=== PATIENT | male | born 1945 | race Caucasian/White ===

== ENCOUNTER → 2019-06-06 10:32 | Outpatient (CLI) | payer MEDICARE, SELFPAY ==
--- NOTE | 2019-06-06 10:43 | XR_ITS ---
The PROCEDURE: XR CALCANEUS LT MIN 2V CLINICAL INDICATION: LT HEEL PAIN Posttraumatic pain COMPARISON: No exams were available for comparison FINDINGS: No fracture or dislocation. No lytic or blastic change. There is normal mineralization. The joint spaces are well-preserved. No significant degenerative/arthritic changes. No erosive changes evident. Other findings:There is a small calcaneal spur as well as an enthesophyte at the Achilles insertion. IMPRESSION: No acute fracture apparent. CT or MRI may be of further value for continuing pain if clinically warranted Dictated by: Christiano Carrington MD 06/06/2019 11:20 Electronically signed by Christiano Carrington MD in [place] 06/06/2019 11:20
== END ==
PROVIDERS: PCP Internal Medicine; Visit Provider Internal Medicine
DX: M79.672 Pain in left foot (principal)
CPT/HCPCS: 73650

== ENCOUNTER 2019-10-18 15:30 | Outpatient (RCR) | payer MEDICARE, MEDICAID, SELFPAY ==
--- NOTE | 2019-09-16 15:07 | HMH.PTOPEV ---
PT Outpatient Evaluation Rehab PT Outpatient Evaluation Start: 09/16/19 14:14 Freq: Status: Active Protocol: Document 09/16/19 14:51 PHORLEONORA (Rec: 09/16/19 15:07 PHORNE [id number]) Electronically Signed By Shaji Apodaca, PT 09/16/19 14:51 Outpatient Therapy Subjective History Subjective History Pt is 74 yowm who presents with L heel pain x 3-4 mos with insidious onset of symptoms. He had X-ray performed which shows calcaneal heel spur in the area of pain. He also reports numbness throughout the L heel since his pain began. He has a hx of Lumbar spinepain with surgery at L4-5 and they moved my sciatic nerve on the left side. He reports pain is worse with walking and standing and the anti- inflammatory injections have not helped much at all. He reports he was given a night splint and instructed to wear it for 1 hr before bed and has been using a frozen water bottle to roll his foot on with little inmprovement. PMH: HTN, HL, Migraine, and kidney stones. Chief Complaint Pain Symptom Type Ache,Sharp Symptoms Relieved By Rest/Positioning Symptoms Aggravated By Standing,Walking Prior Functional Limitations None Current Functional Limitations Standing,Walking Symptom Description Constant but Variable Level of pain today (0-10) 8 Pain scale - at its worst (0-10) 10 Ankle/Foot Eval Gait Observation General Gait Pattern Observation Antalgic Gait,Decrease Weight Bear (L) Palpation Tenderness left Ankle/Foot Palpation Findings Tenderness Ankle/Foot Palpation Overall Comment min-mod on left heel at medial calacaneus ROM Ankle/Foot Dorsiflexion w/Knee Extended 0-8 Active Range Motion (degrees) Ankle/Foot Plantar Flexion Active Range 0-40 of Motion (degrees) Ankle/Foot Eversion Active Range of 0-28 Motion (degrees) Ankle/Foot Eversion Passive Range of 0-40 Motion (degrees) MMT Ankle Dorsiflexion Strength Grade 5 Normal Ankle Plantarflexion Strength Grade 5 Normal Foot Eversion Strength Grade 5 Normal
== END 2019-10-18 15:35 | disposition home or self-care (01) ==
LOC: PT 15:30
PROVIDERS: PCP Internal Medicine; Visit Provider Podiatrist
DX: M72.2 Plantar fascial fibromatosis (principal)
CPT/HCPCS: 97010; 97014; 97033; 97035; 97110; 97140; 97163; 97760; G0283

== ENCOUNTER → 2020-01-10 16:08 | Outpatient (CLI) | payer MEDICARE, MEDICAID, SELFPAY ==
--- NOTE | 2020-01-10 16:18 | XR_ITS ---
PROCEDURE: XR FOOT LT MIN 3V CLINICAL INDICATION: L DORSAL FOOT PAIN COMPARISON: No exams were available for comparison FINDINGS: No fracture or dislocation. No lytic or blastic change. There is normal mineralization. There are minimal osteoarthritic changes of the 1st MTP joint as well as the navicular cuneiform joint. There is a small calcaneal spur and a small enthesophyte at the Achilles insertion. Other findings:None. IMPRESSION: Degenerative changes, no acute finding Dictated by: Christiano Carrington MD 01/10/2020 18:22 Electronically signed by Christiano Carrington MD in [place] 01/10/2020 18:22
== END ==
PROVIDERS: PCP Internal Medicine; Visit Provider Internal Medicine
DX: M79.672 Pain in left foot (principal)
CPT/HCPCS: 73630

== ENCOUNTER → 2020-09-26 14:42 | Outpatient (CLI) | payer MEDICARE, MEDICAID, SELFPAY ==
--- NOTE | 2020-09-26 14:49 | XR_ITS ---
PROCEDURE: XR SHOULDER RT MIN 2V CLINICAL INDICATION: RT SHOULDER PAIN COMPARISON: No exams were available for comparison FINDINGS: No fracture or dislocation. No lytic or blastic change. There is normal mineralization. Osteoarthritic changes are present at the acromioclavicular joint and glenohumeral joint. There is a high-riding humeral head with subacromial stenosis which is moderate to severe suggesting rotator cuff tear. MRI may confirm. Other findings:None. 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 Dictated by: Christiano Carrington MD 09/26/2020 15:17 Christiano Carrington MD in [place] 09/26/2020 15:17
== END ==
PROVIDERS: PCP Internal Medicine; Visit Provider Internal Medicine
DX: M25.511 Pain in right shoulder (principal)
CPT/HCPCS: 73030

== ENCOUNTER → 2020-12-03 15:23 | Outpatient (CLI) | payer MEDICARE, MEDICAID, SELFPAY ==
--- NOTE | 2020-12-03 | XR_ITS ---
PROCEDURE: XR TIBIA FIBULA LT 2V CLINICAL INDICATION: LT LEG AND ANKLE PAIN Pain and swelling COMPARISON: No exams were available for comparison FINDINGS: No fracture or dislocation. No lytic or blastic change. There is normal mineralization. The joint spaces are well-preserved. No significant degenerative/arthritic changes. No erosive changes evident. Other findings:None. IMPRESSION: No acute findings. Dictated by: Christiano Carrington MD 12/03/2020 15:50 Christiano Carringotn MD in [place] 12/03/2020 15:50
--- NOTE | 2020-12-03 | XR_ITS ---
PROCEDURE: XR ANKLE LT MIN 3V CLINICAL INDICATION: LT LEG AND ANKLE PAIN Pain and swelling COMPARISON: No exams were available for comparison FINDINGS: There is an ununited ossification center versus an old fracture at the tip of the medial malleolus. No acute fracture or dislocation is evident. There is minimal spurring at the distal tibia anteriorly and posteriorly. There is a small calcaneal spur. IMPRESSION: Chronic changes, no acute finding Dictated by: Christiano Carrington MD 12/03/2020 15:51 Christiano Carrington MD in [place] 12/03/2020 15:51
== END ==
PROVIDERS: PCP Internal Medicine; Visit Provider Internal Medicine
DX: M25.572 Pain in left ankle and joints of left foot (principal)
CPT/HCPCS: 73590; 73610

== ENCOUNTER → 2020-12-11 12:44 | Outpatient (CLI) | payer MEDICARE, MEDICAID, SELFPAY ==
--- NOTE | 2020-12-11 12:50 | MR_ITS ---
PROCEDURE: MR SHOULDER RT WO CON CLINICAL INDICATION: RT SHOULDER PAIN COMPARISON: No exams were available for comparison TECHNIQUE: Routine multiplanar multi echo sequences are performed without gadolinium enhancement. FINDINGS: There is a full-thickness full width tear of the supraspinatus with tendon retraction measuring approximately 3.5 centimeters. There is moderate to severe supraspinatus muscle atrophy. There is an undersurface tear of the infraspinatus with intrasubstance extension. Mild atrophy of the infraspinatus is noted. There is fraying with partial thickness tear of the superior fibers of supraspinatus. The teres minor is intact. The biceps tendon is intact free air. Fluid is noted within the bicipital groove. Fluid is noted in the subacromial/subdeltoid bursa. Non arthrographic images of the labrum demonstrate no evidence of tears. Minor subchondral cystic changes are noted. Moderate acromioclavicular joint osteoarthritis. Bone marrow signal intensity is within normal limits without evidence of marrow infiltrative process. The coracoclavicular, coracoacromial and coracohumeral ligaments are intact. No other soft tissue abnormality is noted. IMPRESSION: Full-thickness foot with tear of the supraspinatus with tendon retraction measuring approximately 3.5 centimeters. Moderate to severe supraspinatus muscle atrophy. Undersurface tear of the infraspinatus with the intrasubstance extension. Mild atrophy of the infraspinatus. Subacromial/subdeltoid bursitis. Acromioclavicular joint osteoarthritis. Dictated by: Henrietta Giraldo 12/11/2020 14:43 Henrietta Giraldo in [place] 12/11/2020 14:43
== END ==
PROVIDERS: PCP Internal Medicine; Visit Provider Internal Medicine
DX: M75.101 Unspecified rotator cuff tear or rupture of right shoulder, not specified as traumatic (principal)
CPT/HCPCS: 73221

== ENCOUNTER 2020-12-23 12:54 | Emergency (ER) | payer MEDICARE, MEDICAID, SELFPAY ==
[2020-12-23 12:54] VITALS: BP 145/93; PULSE 81; RESP 22; TEMP 36.6; O2SAT 98; BMI 36.8
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
--- NOTE | 2020-12-23 12:56 | XR_ITS ---
PROCEDURE: XR CHEST 2V CLINICAL HISTORY: sob Shortness of breath, smoker COMPARISON: CR CXR CHEST(2 VIEWS-NOT PORTABLE) from 08/18/2014 CR CXR CHEST(2 VIEWS-NOT PORTABLE) from 12/25/2014 CR CXR CHEST(2 VIEWS-NOT PORTABLE) from 07/31/[address] CHEST W/ CONTRAST from 08/01/2016 FINDINGS: The cardiomediastinal silhouette and pulmonary vascularity are within normal limits. Increased density is present along the anterior aspect of T10 and T11 the lateral view with suggestion of a mass or dense consolidation in this region measuring approximately 4 cm. While this could be related to overlying osteophytes and vascular summation density, 1 cannot exclude the possibility a mass or dense consolidation. Chest CT may provide further evaluation. The remaining lungs are clear. COPD changes. No acute bony findings. There is mild chronic wedge compression changes of T12 and T11 IMPRESSION: Possible mass or dense consolidation overlies lower thoracic spine anteriorly versus summation artifact. Chest CT with contrast may provide further evaluation COPD changes Dictated by: Christiano Carrington MD 12/23/2020 13:57 Christiano Carrington MD in [place] 12/23/2020 13:57
[2020-12-23 13:03] VITALS: BP 154/92; PULSE 79; RESP 24; O2SAT 97
[2020-12-23 13:30] VITALS: BP 152/98; PULSE 77; RESP 18; O2SAT 96
[2020-12-23 13:38] LABS: Basophils % 0.2 % (0.1-2.0); Eosinophils # 0.1 K/mm3 (0.0-0.4); Eosinophils % 0.7 % (0.1-12.0); Hematocrit 45.4 % (42.0-52.0); Hemoglobin 15.1 g/dL (14.1-18.0); Lymphocytes # 1.1 K/mm3 (0.7-4.5); Lymphocytes % 9.6 % (10-50); Mean Corpuscular HGB Conc 33.2 g/dL (31.8-35.4); Mean Corpuscular Hemoglobin 30.3 pg (27.0-31.2); Mean Corpuscular Volume 91.1 fl (80-94); Mean Platelet Volume 8.3 fl (7.4-10.4); Monocytes # 0.6 K/mm3 (0.1-1.0); Neutrophils % 84.5 % (37.0-80.0); Platelet Count 176 K/mm3 (142-424); Red Blood Count 4.98 M/mm3 (4.60-6.20); Red Cell Distribution Width 14.5 % (11.5-17.5); White Blood Count 11.9 K/mm3 (4.8-10.8)
[2020-12-23 13:46] LABS: Alanine Aminotransferase 24 U/L (12-78); Albumin Level 4.2 g/dl (3.5-5.0); Albumin/Globulin Ratio 1.4 (1.1-1.8); Alkaline Phosphatase 68 U/L (38-126); Anion Gap 11.4 mEq/L (5-15); Aspartate Amino Transferase 30 U/L (17-59); Bilirubin,Total 0.6 mg/dl (0.2-1.3); Blood Urea Nitrogen 9 mg/dl (9-20); Calcium 9.7 mg/dl (8.4-10.2); Carbon Dioxide 28 mmol/L (22.0-30.0); Chloride 105 mmol/L (98-107); Creatinine Clearance Estimated 99 mL/min (50-200); Estimated Glomerular Filt Rate 83 ml/min (>60); GFR (African American) 100 ML/MIN (>60); Glucose 115 mg/dl (74-100); Potassium 4.4 mmoL/L (3.5-5.1); Sodium 140 mmol/L (136-145); Total Protein,Serum 7.2 g/dl (6.3-8.2)
[2020-12-23 13:59] LABS: Troponin I < 0.01 ng/ml (0.00-0.034)
[2020-12-23 14:00] VITALS: BP 157/100; PULSE 79; RESP 20; O2SAT 98
[2020-12-23 14:16] VITALS: BP 152/100; PULSE 78; RESP 20; TEMP 36.6; O2SAT 98
--- NOTE | 2020-12-24 13:49 | ECG_ITS ---
APPROVED REPORT Exam: Resting ECG HR:74 bpm ECG Measurements Heart Rate 74 AXES VA 204 P 66 QRSd 88 QRS 244 QT 396 T 57 QTc 439 Conclusion Normal sinus rhythm Possible Left atrial enlargement Right superior axis deviation Possible Right ventricular hypertrophy Abnormal ECG Electronically signed by : Ruddy Hubbard, 12/27/2020 14:01:47
== END 2020-12-23 14:18 | disposition home or self-care (01) ==
PROVIDERS: Emergency Provider Family Medicine; PCP Internal Medicine
DX: Z77.098 Contact with and (suspected) exposure to other hazardous, chiefly nonmedicinal, chemicals (principal); R05 Cough; R06.02 Shortness of breath; I10 Essential (primary) hypertension; K21.9 Gastro-esophageal reflux disease without esophagitis; Z88.5 Allergy status to narcotic agent; Z87.442 Personal history of urinary calculi; F17.210 Nicotine dependence, cigarettes, uncomplicated
CPT/HCPCS: 71046; 80053; 84484; 85025; 93005; 99283

== ENCOUNTER → 2020-12-31 11:00 | Outpatient (CLI) | payer MEDICARE, MEDICAID, SELFPAY ==
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
== END ==
PROVIDERS: PCP Internal Medicine; Visit Provider Internal Medicine
DX: R06.02 Shortness of breath (principal)
CPT/HCPCS: 71270; Q9967

== ENCOUNTER → 2021-05-24 17:24 | Outpatient (CLI) | payer MEDICARE, MEDICAID, SELFPAY ==
[2021-05-24 18:31] LABS: Basophils # 0.1 K/mm3 (0-0.2); Eosinophils # 0.1 K/mm3 (0.0-0.4); Eosinophils % 1.3 % (0.1-12.0); Hematocrit 43.2 % (42.0-52.0); Hemoglobin 14.1 g/dL (14.1-18.0); Lymphocytes # 3.1 K/mm3 (0.7-4.5); Lymphocytes % 29.9 % (10-50); Mean Corpuscular HGB Conc 32.6 g/dL (31.8-35.4); Mean Corpuscular Hemoglobin 29.3 pg (27.0-31.2); Mean Corpuscular Volume 89.7 fl (80-94); Mean Platelet Volume 9.9 fl (7.4-10.4); Monocytes # 1.1 K/mm3 (0.1-1.0); Monocytes % 10.3 % (1.7-9.3); Neutrophils # 5.9 K/mm3 (1.8-7.8); Neutrophils % 57.4 % (37.0-80.0); Platelet Count 254 K/mm3 (142-424); Red Blood Count 4.81 M/mm3 (4.60-6.20); Red Cell Distribution Width 14.5 % (11.5-17.5); White Blood Count 10.3 K/mm3 (4.8-10.8)
[2021-05-24 19:03] LABS: Alanine Aminotransferase 17 U/L (12-78); Albumin Level 4.1 g/dl (3.5-5.0); Albumin/Globulin Ratio 1.6 (1.1-1.8); Alkaline Phosphatase 66 U/L (38-126); Anion Gap 12.8 mEq/L (5-15); Aspartate Amino Transferase 22 U/L (17-59); Bilirubin,Total 0.3 mg/dl (0.2-1.3); Blood Urea Nitrogen 8 mg/dl (9-20); Calcium 9.3 mg/dl (8.4-10.2); Carbon Dioxide 30 mmol/L (22.0-30.0); Chloride 103 mmol/L (98-107); Cholesterol 155 mg/dl (140-200); Estimated Glomerular Filt Rate 110 ml/min (>60); GFR (African American) 133 ML/MIN (>60); Globulin 2.6 g/dL (1.3-3.2); Glucose 70 mg/dl (74-100); HDL Cholesterol 51 mg/dl (40-60); Potassium 3.8 mmoL/L (3.5-5.1); Sodium 142 mmol/L (136-145); Total Protein,Serum 6.7 g/dl (6.3-8.2); Triglycerides 131 mg/dl (30-150); Uric Acid 6.1 mg/dl (3.5-8.5); VLDL Cholesterol 26 mg/dL (0-40)
[2021-05-24 19:13] LABS: Direct LDL Cholesterol 78.31 mg/dL (100-129)
== END ==
PROVIDERS: Visit Provider Internal Medicine
DX: I10 Essential (primary) hypertension (principal); E78.5 Hyperlipidemia, unspecified; M10.9 Gout, unspecified; J44.9 Chronic obstructive pulmonary disease, unspecified
CPT/HCPCS: 80053; 80061; 84550; 85025

== ENCOUNTER → 2021-06-12 16:12 | Outpatient (CLI) | payer MEDICARE, MEDICAID, SELFPAY ==
[2021-06-12 16:32] LABS: Coronavirus 19, PCR Not Detected (NotDetected); Influenza A, PCR Not Detected (NotDetected); Influenza B, PCR Not Detected (NotDetected)
== END ==
PROVIDERS: PCP Internal Medicine; Visit Provider Internal Medicine
DX: Z20.822 Contact with and (suspected) exposure to COVID-19 (principal)
CPT/HCPCS: C9803; U0003; U0005

== ENCOUNTER → 2021-08-23 16:24 | Outpatient (CLI) | payer MEDICARE, MEDICAID, SELFPAY ==
[2021-08-23 17:24] LABS: Basophils % 0.2 % (0.1-2.0); Eosinophils # 0.2 K/mm3 (0.0-0.4); Eosinophils % 1.4 % (0.1-12.0); Hematocrit 43.4 % (42.0-52.0); Hemoglobin 14.3 g/dL (14.1-18.0); Lymphocytes # 2.7 K/mm3 (0.7-4.5); Lymphocytes % 18.6 % (10-50); Mean Corpuscular HGB Conc 32.9 g/dL (31.8-35.4); Mean Corpuscular Hemoglobin 29.6 pg (27.0-31.2); Mean Platelet Volume 8.7 fl (7.4-10.4); Monocytes % 7.3 % (1.7-9.3); Neutrophils # 10.3 K/mm3 (1.8-7.8); Neutrophils % 72.5 % (37.0-80.0); Platelet Count 238 K/mm3 (142-424); Red Blood Count 4.82 M/mm3 (4.60-6.20); Red Cell Distribution Width 14.3 % (11.5-17.5); White Blood Count 14.3 K/mm3 (4.8-10.8)
== END ==
PROVIDERS: Visit Provider Internal Medicine
DX: K57.92 Diverticulitis of intestine, part unspecified, without perforation or abscess without bleeding (principal)
CPT/HCPCS: 85025

== ENCOUNTER → 2021-09-10 16:30 | Outpatient (CLI) | payer MEDICARE, MEDICAID, SELFPAY ==
[2021-09-10 17:07] LABS: Strep Scrn Group A (Rapid) Negative (Negative)
== END ==
PROVIDERS: PCP Internal Medicine; Visit Provider Internal Medicine
DX: Z20.822 Contact with and (suspected) exposure to COVID-19 (principal); J02.9 Acute pharyngitis, unspecified
CPT/HCPCS: 87430; C9803; U0003; U0005

== ENCOUNTER → 2021-10-29 10:33 | Outpatient (CLI) | payer MEDICARE, MEDICAID, SELFPAY ==
--- NOTE | 2021-10-29 10:43 | CT_ITS ---
FINAL REPORT CLINICAL HISTORY: LLQ PAIN, HX DIVERTICULITIS PRIOR 04-17-16 COMPARISON: April 17, 2016 FINDINGS: Axial CT images of the abdomen and pelvis were obtained without intravenous contrast. Coronal reformatted images were also obtained.This study was performed with techniques to keep radiation doses as low as reasonably achievable (ALARA). Individualized dose reduction techniques using automated exposure control or adjustment of mA and/or kV according to the patient's size were employed. Abdomen: There is mild scarring in the lung bases. There is no evidence of renal stone or hydronephrosis. The gallbladder is unremarkable. There is mild fatty infiltration of the liver. The spleen and pancreas have an unremarkable, unenhanced appearance. No mass or adenopathy is seen. No inflammatory process is identified. There is a small umbilical hernia containing fat. Pelvis: The appendix is normal. There is no evidence of ureteral dilation or ureteral stone. There is descending and sigmoid diverticulosis without evidence of diverticulitis. The prostate is enlarged. Bilateral L5 pars defects are noted. IMPRESSION: No renal or ureteral stone, or hydronephrosis. Descending and sigmoid diverticulosis without evidence of diverticulitis. No acute inflammatory process. Reviewed, Interpreted and Dictated by Luis Bey III, MD Transcribed by Mireya Pisano Authenticated by Luis Bey III, MD on 10/29/2021 11:54:19 AM [facility]
== END ==
PROVIDERS: PCP Internal Medicine; Visit Provider Internal Medicine
DX: R10.32 Left lower quadrant pain (principal)
CPT/HCPCS: 74176

== ENCOUNTER → 2021-11-06 10:46 | Outpatient (CLI) | payer MEDICARE, MEDICAID, SELFPAY ==
--- NOTE | 2021-11-06 10:49 | US_ITS ---
FINAL REPORT CLINICAL HISTORY: CLAUDICATION,REST PAIN,HLD,HTN,SMOKER,SKIN COLOR CHANGES FINDINGS: Ankle brachial indices was obtained. The MEHDI on the right is 1.1 which is normal. The MEHDI on the left is 0.9 which is mildly depressed consistent with mild arterial occlusive disease. 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 Reviewed, Interpreted and Dictated by Micheal Welch MD Transcribed by Mana Campos Authenticated by Micheal Welch MD on 11/06/2021 01:46:45 PM [facility]
== END ==
PROVIDERS: PCP Internal Medicine; Visit Provider Internal Medicine
DX: I73.9 Peripheral vascular disease, unspecified (principal)
CPT/HCPCS: 93923

== ENCOUNTER → 2021-11-08 11:48 | Outpatient (CLI) | payer MEDICARE, MEDICAID, SELFPAY ==
[2021-11-08 12:48] LABS: Basophils % 0.3 % (0.1-2.0); Eosinophils % 0.3 % (0.1-12.0); Hematocrit 45.6 % (42.0-52.0); Hemoglobin 14.8 g/dL (14.1-18.0); Lymphocytes % 22.4 % (10-50); Mean Corpuscular HGB Conc 32.4 g/dL (31.8-35.4); Mean Corpuscular Volume 89.3 fl (80-94); Mean Platelet Volume 8.8 fl (7.4-10.4); Monocytes # 0.3 K/mm3 (0.1-1.0); Monocytes % 3.1 % (1.7-9.3); Neutrophils # 6.7 K/mm3 (1.8-7.8); Neutrophils % 73.8 % (37.0-80.0); Platelet Count 257 K/mm3 (142-424); Red Blood Count 5.11 M/mm3 (4.60-6.20); White Blood Count 9.1 K/mm3 (4.8-10.8)
[2021-11-08 13:21] LABS: Chloride 100 mmol/L (98-107); Potassium 3.9 mmoL/L (3.5-5.1); Sodium 136 mmol/L (136-145)
[2021-11-08 13:23] LABS: Alanine Aminotransferase 28 U/L (12-78); Alkaline Phosphatase 71 U/L (38-126); Aspartate Amino Transferase 28 U/L (17-59); Bilirubin,Total 0.5 mg/dl (0.2-1.3); Blood Urea Nitrogen 8 mg/dl (9-20); Estimated Glomerular Filt Rate 94 ml/min (>60); GFR (African American) 114 ML/MIN (>60)
[2021-11-08 13:24] LABS: Albumin Level 4.3 g/dl (3.5-5.0); Albumin/Globulin Ratio 1.7 (1.1-1.8); Anion Gap 9.9 mEq/L (5-15); Calcium 8.7 mg/dl (8.4-10.2); Carbon Dioxide 30 mmol/L (22.0-30.0); Chol/HDL Ratio 2.8 (1-3.5); Cholesterol 163 mg/dl (140-200); Globulin 2.6 g/dL (1.3-3.2); Glucose 130 mg/dl (74-100); HDL Cholesterol 59 mg/dl (40-60); Total Protein,Serum 6.9 g/dl (6.3-8.2); Triglycerides 124 mg/dl (30-150); VLDL Cholesterol 25 mg/dL (0-40)
[2021-11-08 13:26] LABS: Hemoglobin A1C 6.1 % (4.0-6.0)
[2021-11-08 13:36] LABS: Direct LDL Cholesterol 82.89 mg/dL (100-129)
[2021-11-08 14:18] LABS: Prostate Specific Ag Screen 1.5 ng/ml (0.0-4.0)
== END ==
PROVIDERS: Visit Provider Internal Medicine
DX: I10 Essential (primary) hypertension (principal); E78.5 Hyperlipidemia, unspecified; I73.9 Peripheral vascular disease, unspecified; N40.1 Benign prostatic hyperplasia with lower urinary tract symptoms; M10.9 Gout, unspecified; Z12.5 Encounter for screening for malignant neoplasm of prostate; Z79.899 Other long term (current) drug therapy
CPT/HCPCS: 80053; 80061; 83036; 84550; 85025; G0103

== ENCOUNTER → 2022-03-29 09:01 | Outpatient (CLI) | payer MEDICARE, MEDICAID, SELFPAY ==
[2022-03-29 09:46] LABS: Blood Urea Nitrogen 7 mg/dl (9-20); Estimated Glomerular Filt Rate 110 ml/min (>60); GFR (African American) 133 ML/MIN (>60)
== END ==
PROVIDERS: PCP Internal Medicine; Visit Provider Internal Medicine
DX: M25.511 Pain in right shoulder (principal); S46.811D Strain of other muscles, fascia and tendons at shoulder and upper arm level, right arm, subsequent encounter
CPT/HCPCS: 36415; 82565; 84520

== ENCOUNTER → 2022-03-31 15:52 | Outpatient (CLI) | payer MEDICARE, MEDICAID, SELFPAY | PROVIDERS: PCP Internal Medicine; Visit Provider Internal Medicine | DX: M25.511 Pain in right shoulder (principal) ==

== ENCOUNTER → 2022-08-12 12:31 | Outpatient (CLI) | payer MEDICARE, MEDICAID, SELFPAY ==
[2022-08-12 14:10] LABS: Basophils # 0.1 K/mm3 (0-0.2); Basophils % 0.9 % (0.1-2.0); Eosinophils # 0.2 K/mm3 (0.0-0.4); Hemoglobin 13.3 g/dL (14.1-18.0); Lymphocytes # 2.5 K/mm3 (0.7-4.5); Lymphocytes % 27.6 % (10-50); Mean Corpuscular HGB Conc 31.7 g/dL (31.8-35.4); Mean Corpuscular Hemoglobin 29.5 pg (27.0-31.2); Mean Platelet Volume 11.5 fl (7.4-10.4); Monocytes # 0.8 K/mm3 (0.1-1.0); Monocytes % 9.3 % (1.7-9.3); Neutrophils # 5.5 K/mm3 (1.8-7.8); Neutrophils % 60.3 % (37.0-80.0); Platelet Count 276 K/mm3 (142-424); Red Blood Count 4.52 M/mm3 (4.60-6.20); Red Cell Distribution Width 14.4 % (11.5-17.5); White Blood Count 9.1 K/mm3 (4.8-10.8)
[2022-08-12 15:34] LABS: Alanine Aminotransferase 70 U/L (12-78); Albumin Level 4.2 g/dl (3.5-5.0); Albumin/Globulin Ratio 1.7 (1.1-1.8); Alkaline Phosphatase 214 U/L (38-126); Aspartate Amino Transferase 59 U/L (17-59); Bilirubin,Total 0.3 mg/dl (0.2-1.3); Blood Urea Nitrogen 14 mg/dl (9-20); Calcium 9.9 mg/dl (8.4-10.2); Carbon Dioxide 31 mmol/L (22.0-30.0); Chloride 94 mmol/L (98-107); Chol/HDL Ratio 4.2 (1-3.5); Cholesterol 162 mg/dl (140-200); Estimated Glomerular Filt Rate 82 ml/min (>60); GFR (African American) 100 ML/MIN (>60); Globulin 2.5 g/dL (1.3-3.2); Glucose 80 mg/dl (74-100); HDL Cholesterol 39 mg/dl (40-60); Magnesium 1.6 mg/dl (1.6-2.3); Sodium 140 mmol/L (136-145); Total Protein,Serum 6.7 g/dl (6.3-8.2); Triglycerides 139 mg/dl (30-150); Uric Acid 5.2 mg/dl (3.5-8.5); VLDL Cholesterol 28 mg/dL (0-40)
[2022-08-12 15:46] LABS: Direct LDL Cholesterol 90.67 mg/dL (100-129)
[2022-08-12 16:34] LABS: Hemoglobin A1C 5.5 % (4.0-6.0)
== END ==
PROVIDERS: PCP Internal Medicine; Visit Provider Internal Medicine
DX: I10 Essential (primary) hypertension (principal); E78.5 Hyperlipidemia, unspecified; I73.9 Peripheral vascular disease, unspecified; R73.01 Impaired fasting glucose; G60.9 Hereditary and idiopathic neuropathy, unspecified; M10.9 Gout, unspecified
CPT/HCPCS: 80053; 80061; 83036; 83735; 84550; 85025

== ENCOUNTER → 2022-10-14 13:17 | Outpatient (CLI) | payer MEDICARE, MEDICAID, SELFPAY ==
--- NOTE | 2022-10-14 13:32 | CT_ITS ---
FINAL REPORT CLINICAL HISTORY: R SHOULDER PAIN FINDINGS: Technique: Axial images through the right shoulder were performed by computed tomography. Sagittal and coronal reconstruction images were performed. This study was performed with techniques to keep radiation doses as low as reasonably achievable (ALARA). Individualized dose reduction techniques using automated exposure control or adjustment of mA and/or kV according to the patient's size were employed. There are postoperative changes from shoulder arthroplasty causing significant streak artifact that obscures much of the detail. There is a 16 mm calcification inferior to the glenohumeral joint that may represent a loose body. 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 There is mild AC joint degenerative change. The musculature appears intact. There is a calcification in the upper triceps muscle.. IMPRESSION: Exam limited by significant streak artifact. 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 16 mm loose body inferior to the glenohumeral joint. Reviewed, Interpreted and Dictated by Luis Bey III, MD Transcribed by Virgilio Cardozo Authenticated and [facility]
== END ==
PROVIDERS: PCP Internal Medicine; Visit Provider Orthopaedic Surgery
DX: M25.511 Pain in right shoulder (principal)
CPT/HCPCS: 73200

== ENCOUNTER → 2023-09-01 13:24 | Outpatient (CLI) | payer MEDICARE, MEDICAID, SELFPAY ==
[2023-09-01 14:23] LABS: Basophils # 0.1 K/mm3 (0-0.2); Basophils % 0.5 % (0.1-2.0); Eosinophils # 0.2 K/mm3 (0.0-0.4); Eosinophils % 2.1 % (0.1-12.0); Hemoglobin 15.6 g/dL (14.1-18.0); Lymphocytes # 3.9 K/mm3 (0.7-4.5); Lymphocytes % 34.2 % (10-50); Mean Corpuscular HGB Conc 33.8 g/dL (31.8-35.4); Mean Corpuscular Hemoglobin 30.4 pg (27.0-31.2); Mean Corpuscular Volume 89.9 fl (80-94); Mean Platelet Volume 8.7 fl (7.4-10.4); Monocytes # 0.9 K/mm3 (0.1-1.0); Monocytes % 8.2 % (1.7-9.3); Neutrophils # 6.4 K/mm3 (1.8-7.8); Neutrophils % 55.1 % (37.0-80.0); Platelet Count 254 K/mm3 (142-424); Red Blood Count 5.11 M/mm3 (4.60-6.20); White Blood Count 11.5 K/mm3 (4.8-10.8)
[2023-09-01 14:37] LABS: Alanine Aminotransferase 36 U/L (12-78); Albumin Level 4.2 g/dl (3.5-5.0); Albumin/Globulin Ratio 1.5 (1.1-1.8); Alkaline Phosphatase 66 U/L (38-126); Anion Gap 9.1 mEq/L (5-15); Aspartate Amino Transferase 32 U/L (17-59); Bilirubin,Total 0.6 mg/dl (0.2-1.3); Blood Urea Nitrogen 14 mg/dl (9-20); Calcium 8.8 mg/dl (8.4-10.2); Carbon Dioxide 32 mmol/L (22.0-30.0); Chloride 99 mmol/L (98-107); Chol/HDL Ratio 3.3 (1-3.5); Cholesterol 181 mg/dl (140-200); Estimated Glomerular Filt Rate 73 ml/min (>60); GFR (African American) 88 ML/MIN (>60); Globulin 2.8 g/dL (1.3-3.2); Glucose 82 mg/dl (74-100); HDL Cholesterol 55 mg/dl (40-60); Potassium 4.1 mmoL/L (3.5-5.1); Sodium 136 mmol/L (136-145); Triglycerides 212 mg/dl (30-150); Uric Acid 4.5 mg/dl (3.5-8.5); VLDL Cholesterol 42 mg/dL (0-40)
[2023-09-01 14:48] LABS: Direct LDL Cholesterol 93.22 mg/dL (100-129)
== END ==
PROVIDERS: PCP Internal Medicine; Visit Provider Internal Medicine
DX: I10 Essential (primary) hypertension (principal); Z12.5 Encounter for screening for malignant neoplasm of prostate; E78.5 Hyperlipidemia, unspecified; M10.9 Gout, unspecified; M54.42 Lumbago with sciatica, left side; J44.9 Chronic obstructive pulmonary disease, unspecified; M15.0 Primary generalized (osteo)arthritis
CPT/HCPCS: 80053; 80061; 84550; 85025; G0103

== ENCOUNTER 2023-12-07 23:47 | Emergency (ER) | payer MEDICARE, MEDICAID, SELFPAY ==
[2023-12-07 23:47] VITALS: BP 152/86; PULSE 78; RESP 20; TEMP 36.8; O2SAT 97; BMI 34.0
--- NOTE | 2023-12-07 23:50 | HMH.EDGENADL ---
Discharge Plan Disposition Patient Disposition: Xfer Other Prescriptions Prescriptions: No Action methylprednisolone 4 mg tablet 4 mg PO DIRECTED Patient Comments: TAKE DIRECTED FOR 11 DAYS allopurinol 100 mg tablet 100 mg PO DAILY Patient Comments: TAKE 1 TABLET BY MOUTH EVERY DAY hydrocodone-acetaminophen 10-325 mg tablet 1 tab PO Q6HP PRN (Reason: Pain) Patient Comments: TAKE 1 TABLET BY MOUTH EVERY 6 HOURS NEEDED FOR PAIN aspirin 325 mg tablet,delayed release (DR/EC) 325 mg PO DAILY Patient Comments: TAKE 1 TABLET BY MOUTH ONCE DAILY tamsulosin 0.4 mg capsule 0.4 mg PO HS amlodipine 10 mg tablet 10 mg PO DAILY Patient Comments: TAKE 1 TABLET BY MOUTH ONCE DAILY gabapentin 300 mg capsule 600 mg PO HS Patient Comments: TAKE 2 CAPSULES BY MOUTH EVERY DAY AT BEDTIME omeprazole 20 mg capsule,delayed release(DR/EC) 20 mg PO BID Patient Comments: TAKE 1 CAPSULE BY MOUTH TWICE DAILY albuterol sulfate 90 mcg/actuation HFA aerosol inhaler 1 puff INHALATION Q6HP PRN (Reason: Shortness Of Breath Or Wheezing) Patient Comments: INHALE 1 PUFF BY MOUTH EVERY 6 HOURS NEEDED losartan 100 mg tablet 100 mg PO DAILY Patient Comments: TAKE 1 TABLET BY MOUTH EVERY DAY naproxen 500 mg tablet 500 mg PO BID Patient Comments: TAKE 1 TABLET BY MOUTH TWICE DAILY WITH FOOD Zypitamag 2 mg tablet 2 mg PO Q5D Referrals Follow up/Referrals: Abel Mckenzie MD [Primary Care Provider] - See instructions Activity Restrictions/Add. Instructions Additional Instructions/Restrictions: Please proceed directly to [facility] for further assessment. 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 Qualifiers: Encounter type: initial encounter Qualified Code(s): S68.621A - Partial traumatic transphalangeal amputation of left index finger, initial encounter Partial traumatic amputation of left middle finger through phalanx Qualifiers: Encounter type: initial encounter Qualified Code(s): S68.623A - Partial traumatic transphalangeal amputation of left middle finger, initial encounter Stand Alone Forms Stand Alone Forms: Transfer Record - ED Instructions Patient Instructions: DI for Laceration Repair Discharge ED Provider: Endy Alarcon Adult HPI General Chief complaint: Wound/Laceration Stated complaint: Laceration to hand Time Seen by Provider: 12/07/23 23:49 History of Present Illness HPI narrative: 78-year-old male presents with traumatic injury to the left hand. He was using a table saw when it kicked back on him and he subsequently lacerated his left second and third digits. There is exposed bone, and the tips appear dusky, he has incomplete range of motion. He reports it happened shortly prior to arrival. Reports his tetanus is not up-to-date. Denies any other injury. Reports it is starting to become quite painful. Related Data Home Medications Medication Instructions Recorded Confirmed albuterol sulfate 90 mcg/actuation 1 puff inhalation Q6HP PRN 12/08/23 12/08/23 aerosol inhaler Shortness Of Breath Or Wheezing allopurinol 100 mg tablet 100 mg PO DAILY 12/08/23 12/08/23 amlodipine 10 mg tablet 10 mg PO DAILY 12/08/23 12/08/23 aspirin 325 mg tablet,delayed 325 mg PO DAILY 12/08/23 12/08/23 release gabapentin 300 mg capsule 600 mg PO HS 12/08/23 12/08/23 hydrocodone 10 mg-acetaminophen 1 tab PO Q6HP PRN Pain 12/08/23 12/08/23 325 mg tablet losartan 100 mg tablet 100 mg PO DAILY 12/08/23 12/08/23 methylprednisolone 4 mg tablet 4 mg PO DIRECTED 12/08/23 12/08/23 naproxen 500 mg tablet 500 mg PO BID 12/08/23 12/08/23 omeprazole 20 mg capsule,delayed 20 mg PO BID 12/08/23 12/08/23 release pitavastatin magnesium 2 mg tablet 2 mg PO Q5D 12/08/23 12/08/23 (Zypitamag) tamsulosin 0.4 mg capsule 0.4 mg PO HS 12/08/23 12/08/23 Allergies Allergy/AdvReac Type Severity Reaction Status Date / Time No Known Allergies Allergy Verified 12/08/23 00:32 [facility] Disclaimer: The information contained in this section may have been updated after the patient was seen, as this information can be updated by other users. Social History (Updated 12/08/23 @ 00:33 by Peter Velasquez RN) Smoking Status: Current every day smoker alcohol intake: never substance use type: denies use current occupational status: retired Travel in the last 8 weeks: None household members: spouse and other housing: house ROS Obtained: Yes All systems reviewed & no additional complaints except as documented Physical Exam General General appearance: alert and in no apparent distress Head Head exam: atraumatic and normocephalic Eye Eye exam: Present normal appearance, PERRL and EOMI ENT ENT exam: Present normal oropharynx and normal external ear exam Neck Neck exam: Present normal inspection and full ROM Chest Chest inspection: Present normal inspection and symmetric chest wall rise; Absent tenderness Respiratory Respiratory exam: Present normal lung sounds bilaterally; Absent respiratory distress Cardiovascular Cardiovascular exam: Present regular rate and normal rhythm Abdominal Exam Abdominal exam: Present soft; Absent distention, tenderness or guarding Extremities Exam Extremities exam: Present other (Left hand: Jagged laceration to the left second and third digits at approximately the DIP joint, exposed bone, distal phalanx is held in flexion, unable to extend, dusky in appearance) Back Exam Back exam: Present normal inspection; Absent tenderness Neurological Exam Neurological exam: Present alert and oriented X3; Absent motor sensory deficit Psychiatric Psychiatric exam: Present normal affect and normal mood Skin Skin exam: Present warm, dry and normal color Lymphatic Lymphatic Findings: no adenopathy Medical Decision Making Medical Records Medical records reviewed: Yes I reviewed the patient's medical records. Cam Inquiry Pt receiving controlled substance: No Cam was queried for this patient: No Vital Signs: 12/07/23 23:47 12/08/23 00:30 12/08/23 00:45 Temperature 98.2 F Temperature Source Oral Pulse Rate 72 70 Pulse Rate [Left] 78 Respiratory Rate 20 20 20 Blood Pressure 116/71 127/75 Blood Pressure [Right Arm] 152/86 H Blood Pressure Mean Blood Pressure Mean [Right Arm] 108 Blood Pressure Source [Right Arm] Automatic Cuff Blood Pressure Position [Right Arm] Sitting 02 Sat by Pulse Oximetry 97 94 L 96 Oxygen Delivery Method Room Air Room Air Room Air 12/08/23 01:00 Temperature Temperature Source Pulse Rate 78 Pulse Rate [Left] Respiratory Rate 20 Blood Pressure 113/64 Blood Pressure [Right Arm] Blood Pressure Mean 80 Blood Pressure Mean [Right Arm] Blood Pressure Source [Right Arm] Blood Pressure Position [Right Arm] 02 Sat by Pulse Oximetry 95 Oxygen Delivery Method Room Air Lab Data Lab results reviewed: Yes I reviewed the patient's lab results. Orders (Tests/Meds): ED MEDICATIONS Generic Name Dose Route Start Last Admin Trade Name Freq PRN Reason Stop Dose Admin Oxycodone HCl 5 mg 12/08/23 01:20 12/08/23 01:23 Oxycodone 5mg Immediate Release Tablet PO 12/08/23 01:21 5 mg ONCE ONE Administration Discontinued Medications Generic Name Dose Route Start Last Admin Trade Name Tyron PRN Reason Stop Dose Admin Acetaminophen 1,000 mg 12/07/23 23:53 12/08/23 00:07 Acetaminophen 500mg Tab PO 12/07/23 23:54 1,000 mg ONCE ONE Administration Cefazolin Sodium 2 gm 12/07/23 23:53 12/08/23 00:12 Cefazolin 2gm Vial IV 12/07/23 23:54 Not Given ONCE ONE Fentanyl Citrate 50 mcg 12/07/23 23:54 12/08/23 00:07 Fentanyl 100mcg/2ml Vial IV 12/07/23 23:55 50 mcg ONCE ONE Administration Cefazolin Sodium 2 gm/ Sodium 100 mls @ 200 mls/hr 12/07/23 23:45 12/08/23 00:07 Chloride IV 12/08/23 00:14 200 mls/hr ONCE ONE Administration Ibuprofen 600 mg 12/07/23 23:53 12/08/23 00:07 Ibuprofen 600 Mg Tablet PO 12/07/23 23:54 600 mg ONCE ONE Administration Ondansetron HCl 4 mg 12/07/23 23:54 12/08/23 00:07 Ondansetron 4mg/2ml Vial IV 12/07/23 23:55 4 mg ONCE ONE Administration Tetanus/Reduced Diphtheria/Acell Pertussis 0.5 ml 12/07/23 23:54 12/08/23 00:08 Tet/Diphth/Pert-Adult 0.5ml Syringe IM 12/07/23 23:55 0.5 ml .ONCE ONE Administration ORDERS Category Date Time Status Hand XR left minimum 3 views [XR hand LT min 3V] Stat Exams 12/07/23 23:53 Completed Medical Decision Narrative: 78-year-old male presents with traumatic laceration/partial amputation of the left second and third digits.. History was obtained interactive discussion with patient, family. On arrival, patient is [afebrile, hemodynamically stable, satting appropriately, alert, oriented x4, GCS 15], moving all extremities spontaneously. Full physical exam performed and significant for findings as above consistent with partial amputation of the left second and third digit at the DIP Differential includes but is not limited to fracture, dislocation, laceration, neurovascular injury, tendon injury. Patient was given 2 g Ancef and Tdap as well as p.o. Tylenol ibuprofen, IV fentanyl and IV Zofran for symptomatic management and correction of underlying abnormalities. Wound was washed out on arrival. Workup initiated including radiograph of the left hand.. On re-evaluation, patient [remains afebrile, HD stable.] Imaging independently interpreted by me and significant for open fracture of the left second and third distal phalanx, appears to involve the DIP joint. See radiology read for full review of final results. Given patient history, exam and workup, patient's presentation most likely represents partial amputation of the left second and third digits at approximately the DIP with obvious neurovascular and tendon involvement. Given this, patient requires emergent evaluation by a hand surgeon. We had an interactive discussion with the transfer physician Luz who accepted the patient in transfer. Patient transferred to [place] ED POV. Procedures Risk/Benefits of Procedure(s) Were Explained: Yes Critical Care Critical Care Time Critical Care Time: No
--- NOTE | 2023-12-07 23:53 | XR_ITS ---
PROCEDURE INFORMATION: Exam: XR Left Hand Exam date and time: 12/08/2023 12:06 AM Age: 78 years old Clinical indication: Injury or trauma; Other: Chain saw; Laceration; Hand; Left; Injury date: 12/07/23; Additional info: Table saw injury TECHNIQUE: Imaging protocol: Radiologic exam of the left hand. Views: 3 or more views. COMPARISON: No relevant prior studies available. FINDINGS: Bones/joints: Comminuted intra-articular fracture of the base of the 3rd distal phalanx with the major distal fragment significantly angulated and displaced in the volar direction. Suspected nondisplaced fracture of the 2nd distal phalanx. Soft tissues: Evidence of soft tissue injury to the tip of the 2nd and 3rd fingers. No retained metallic foreign body. IMPRESSION: Partial amputation of the distal end of the 3rd finger and evidence of soft tissue and bony injury of the distal 2nd finger as described. No retained foreign body evident.
[2023-12-08] MEDS: FENTANYL 100MCG/2ML VIAL 50 MCG IV (00:07)
[2023-12-08] MEDS: ONDANSETRON 4MG/2ML VIAL 4 MG IV (00:07)
[2023-12-08] MEDS: CEFAZOLIN SODIUM 2 GM in 0.9 % SODIUM CHLORIDE 100 ML IV (00:07)
[2023-12-08] MEDS: ACETAMINOPHEN 500MG TAB 1000 MG PO (00:07)
[2023-12-08] MEDS: IBUPROFEN 600 MG TABLET PO (00:07)
[2023-12-08] MEDS: TET/DIPHTH/PERT-ADULT 0.5ML SYRINGE 0.5 ML IM (00:08)
--- NOTE | 2023-12-08 00:21 | PC.NURSE ---
call placed to [facility]. spoke with brian. asking for OC hand
[2023-12-08 00:30] VITALS: BP 116/71; PULSE 72; RESP 20; O2SAT 94
[2023-12-08 00:45] VITALS: BP 127/75; PULSE 70; RESP 20; O2SAT 96
[2023-12-08 01:00] VITALS: BP 113/64; PULSE 78; RESP 20; O2SAT 95
[2023-12-08 01:18] VITALS: BP 116/75; PULSE 64; RESP 18; O2SAT 95
[2023-12-08] MEDS: OXYCODONE 5MG IMMEDIATE RELEASE TABLET 5 MG PO (01:23)
[2023-12-08 01:30] VITALS: BP 116/75; PULSE 69; RESP 20; TEMP 36.8; O2SAT 96
== END 2023-12-08 01:37 | disposition other institution (70) ==
PROVIDERS: Emergency Provider Emergency Medicine; PCP Internal Medicine
DX: W31.1XXA Contact with metalworking machines, initial encounter; S62.631B Displaced fracture of distal phalanx of left index finger, initial encounter for open fracture; S62.633B Displaced fracture of distal phalanx of left middle finger, initial encounter for open fracture; F17.210 Nicotine dependence, cigarettes, uncomplicated; Z23 Encounter for immunization
CPT/HCPCS: 73130; 90471; 90715; 96365; 96375; 99285; J0690; J2405

== ENCOUNTER 2024-02-25 09:36 | Outpatient (CLI) | payer MEDICARE, MEDICAID, SELFPAY ==
--- NOTE | 2024-02-25 09:41 | XR_ITS ---
FINAL REPORT CLINICAL HISTORY: Left ankle pain medially FINDINGS: Left ankle Three views were obtained. There is no acute fracture or dislocation. The joint spaces appear normal. There are chronic calcifications inferior to the medial malleolus. Calcaneal spurs are identified. IMPRESSION: No acute process. Reviewed, Interpreted and Dictated by Luis Bey III, MD Transcribed by Mana Campos Authenticated and [facility]
== END 2024-02-25 23:59 | disposition home or self-care (01) ==
LOC: RAD 09:37
PROVIDERS: PCP Internal Medicine; Visit Provider Internal Medicine
DX: M25.572 Pain in left ankle and joints of left foot (principal)
CPT/HCPCS: 73610

== ENCOUNTER 2024-11-01 17:05 | Outpatient (CLI) | payer MEDICARE, MEDICAID, SELFPAY ==
[2024-11-01 17:26] LABS: Basophils # 0.1 K/mm3 (0-0.2); Basophils % 0.9 % (0.1-2.0); Eosinophils # 0.3 K/mm3 (0.0-0.4); Eosinophils % 3.4 % (0.1-12.0); Hematocrit 42.9 % (42.0-52.0); Hemoglobin 14.1 g/dL (14.1-18.0); Lymphocytes # 1.9 K/mm3 (0.7-4.5); Lymphocytes % 21.8 % (10-50); Mean Corpuscular HGB Conc 32.9 g/dL (31.8-35.4); Mean Corpuscular Hemoglobin 29.4 pg (27.0-31.2); Mean Corpuscular Volume 89.6 fl (80-94); Mean Platelet Volume 11.6 fl (7.4-10.4); Monocytes % 11.7 % (1.7-9.3); Neutrophils # 5.5 K/mm3 (1.8-7.8); Platelet Count 248 K/mm3 (142-424); Red Blood Count 4.79 M/mm3 (4.60-6.20); Red Cell Distribution Width 13.9 % (11.5-17.5); White Blood Count 8.9 K/mm3 (4.8-10.8)
[2024-11-01 22:13] LABS: Alanine Aminotransferase 31 U/L (12-78); Albumin Level 4.5 g/dl (3.5-5.0); Alkaline Phosphatase 57 U/L (38-126); Anion Gap 9.2 mEq/L (5-15); Aspartate Amino Transferase 34 U/L (17-59); Bilirubin,Total 0.5 mg/dl (0.2-1.3); Blood Urea Nitrogen 15 mg/dl (9-20); Calcium 9.4 mg/dl (8.4-10.2); Carbon Dioxide 29 mmol/L (22.0-30.0); Chloride 100 mmol/L (98-107); Chol/HDL Ratio 5.4 (1-3.5); Cholesterol 193 mg/dl (140-200); Estimated Glomerular Filt Rate 82 ml/min (>60); GFR (African American) 99 ML/MIN (>60); Globulin 2.3 g/dL (1.3-3.2); Glucose 92 mg/dl (74-100); HDL Cholesterol 36 mg/dl (40-60); Potassium 4.2 mmoL/L (3.5-5.1); Sodium 134 mmol/L (136-145); Total Protein,Serum 6.8 g/dl (6.3-8.2); Triglycerides 197 mg/dl (30-150); Uric Acid 4.6 mg/dl (3.5-8.5); VLDL Cholesterol 39 mg/dL (0-40)
[2024-11-01 22:24] LABS: Direct LDL Cholesterol 116.89 mg/dL (100-129)
[2024-11-01 22:43] LABS: Prostate Specific Ag Screen 2.3 ng/ml (0.0-4.0)
== END 2024-11-01 23:59 | disposition home or self-care (01) ==
LOC: LAB.DROPOF 17:06
PROVIDERS: PCP Internal Medicine; Visit Provider Internal Medicine
DX: I10 Essential (primary) hypertension (principal); E78.5 Hyperlipidemia, unspecified; M15.0 Primary generalized (osteo)arthritis; M10.9 Gout, unspecified; Z12.5 Encounter for screening for malignant neoplasm of prostate
CPT/HCPCS: 80053; 80061; 84550; 85025; G0103

== ENCOUNTER 2024-11-16 10:38 | Emergency (ER) | payer MEDICARE, MEDICAID, SELFPAY ==
--- NOTE | 2024-11-16 10:40 | PC.NURSE ---
EMS called out pt is a code blue, they are approx 10 minutes before arrival to [facility]
--- NOTE | 2024-11-16 10:59 | PC.NURSE ---
Pt arrived via EMS at [address] Airway secured by EMS with size 4 AirQ supraglottic airway. 18g PIV established in left AC. EMS reports giving 3mg total of Epi, 300mg and 150mg bolus of Amio, and 5 total shocks for refractory Vfib. 1049- CPR paused. No pulse present. CPR resumed via autopulse. 1050- Lido given IV. Mag Sulfate 2gms IV given. 1051- CPR paused. No pulse present. Asystole on monitor. CPR resumed via autopulse. 1052- 1mg Epi IV given. 1053. CPR paused. No pulse present. POC cardiac US shows no cardiac activity per MD. Asystole on monitor. CPR resumed via autopulse. 1055- CPR paused. No pulse present. No cardiac activity on POC US per MD. Asystole on monitor. 1056- Efforts terminated. TOD 1056.
--- NOTE | 2024-11-16 11:07 | PC.NURSE ---
Asiya from respiratory notified Darby petroleum inspector.
--- NOTE | 2024-11-16 11:12 | HMH.EDGENADL ---
Discharge Plan Disposition Patient Disposition: Date/Time: 11/16/24 10:56 Clinical Impressions Clinical Impression: Cardiac arrest Discharge ED Provider: Cruz Stone General Adult HPI General Stated complaint: code blue Time Seen by Provider: 11/16/24 10:38 History of Present Illness HPI narrative: Patient is a 79-year-old male with unknown medical history presents emergency department for evaluation as a code. History is all obtained by EMS report. Patient was speaking to someone 3 minutes prior to 911 called and then he was subsequently found down, ACLS initiated in the field, supraglottic airway placed, epinephrine x 3, amiodarone x 2 prior to arrival, patient is on auto pulse upon arrival, no other history is able to be obtained at this time. Related Data Home Medications ?Medication ?Instructions ?Recorded ?Confirmed aspirin 81 mg tablet,delayed 81 mg PO DAILY 11/01/24 release (Adult Low Dose Aspirin) naproxen 500 mg tablet 500 mg PO BID PRN 11/01/24 11/01/24 Previous Rx's ?Medication ?Instructions ?Recorded amlodipine 10 mg tablet 10 mg PO DAILY #90 tabs 03/23/24 pitavastatin magnesium 2 mg tablet 2 mg PO .twice a week #24 tabs 07/04/24 (Zypitamag) tamsulosin 0.4 mg capsule See Rx Instructions .Route 07/13/24 .COMPLEX #180 caps gabapentin 300 mg capsule 600 mg (2 x 300 mg) PO HS #180 caps 07/25/24 allopurinol 100 mg tablet See Rx Instructions .Route 09/26/24 .COMPLEX #90 tabs albuterol sulfate 90 mcg/actuation See Rx Instructions .Route 10/07/24 aerosol inhaler .COMPLEX #8.5 grams hydrocodone 10 mg-acetaminophen 1 tab PO Q6HP PRN Pain #120 tabs 10/27/24 325 mg tablet losartan 100 mg tablet See Rx Instructions .Route 10/28/24 .COMPLEX #90 tabs amoxicillin 875 mg-potassium 1 tab PO BID #20 tabs 11/01/24 clavulanate 125 mg tablet omeprazole 20 mg capsule,delayed 20 mg PO BID #180 caps 11/16/24 release Allergies Allergy/AdvReac Type Severity Reaction Status Date / Time morphine liquid Allergy Vomiting Uncoded 02/25/24 09:06 nyquil Allergy Difficulty Uncoded 02/25/24 09:06 Breathing [facility] Disclaimer: The information contained in this section may have been updated after the patient was seen, as this information can be updated by other users. Social History Smoking Status: Current every day smoker alcohol intake: never substance use type: denies use current occupational status: retired Travel in the last 8 weeks: None household members: spouse and other housing: house Other Medical History Have you received the Flu Vaccine for this season: Yes Have you received the Pneumonia Vaccine: Yes ROS Obtained: Yes unobtainable due to endotracheal tube and Yes other Coding Physical Exam General General appearance: other (Coding) Comment: Coding Eye Eye exam: Present other (Pupils fixed and dilated) ENT ENT exam: Present other (Supraglottic airway in place) Respiratory Respiratory exam: Present other (Bagged respirations) Cardiovascular Cardiovascular exam: Present other (Pulseless) Neurological Exam Neurological exam: Present other (GCS 3 T) Medical Decision Making Medical Records Screening: Per USPSTF and CDC recommendations, given the prevalence of disease in our region, it is our hospital?s policy to screen for HIV and viral Hepatitis for all patients aged 18 and over and those with ongoing risk factors. Cam Inquiry Pt receiving controlled substance: No Medical Decision Narrative: In summary patient is 79-year-old male with past medical history described above who presents emergency department as a code. Upon receipt of the patient patient is refractory V-fib arrest has had multiple shocks delivered prior to arrival is on auto pulse, has gotten 3 rounds of epinephrine and 2 rounds of amiodarone. Auto pulse was continued, IV access was already obtained prior to arrival, bag through supraglottic airway will continue. Patient underwent multiple rounds of ACLS including lidocaine and magnesium pushes in addition to additional epinephrine. Patient was in refractory asystolic arrest in the emergency department. I suspect patient had a devastating cardiac accident however unfortunately after multiple rounds of resuscitation further attempts at ACLS were deemed futile given to the duration of the code and resuscitation efforts were discontinued, [id number] ultrasound confirms cardiac standstill, time of 1056. Critical Care Critical Care Time Critical Care Time: Yes Attestation: On 11/16/24, the high probability of a clinically significant, sudden or life threatening deterioration of the following system(s) required my full and direct attention, intervention and personal management. The time I documented below is in addition to time spent performing reported procedures but includes the following listed in this critical care notation. Total Time Total Critical Care Time: 18
--- NOTE | 2024-11-16 11:15 | PC.NURSE ---
I notified MAURO of the cardiac arrest with time of at 1056. 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 Jenna states she will begin working on her end and will reach out to the pts daughter. She requests the pt not be released to the [facility] until she speaks with us again and family.
--- NOTE | 2024-11-16 11:19 | PC.NURSE ---
Juani Abbasi-recruitment assistant arrived.
--- NOTE | 2024-11-16 11:30 | PC.NURSE ---
Juani Abbasi-diesel pile hammer operator states it will not be a diesel pile hammer operator case. The pt will be released to the home at the appropriate time.
--- NOTE | 2024-11-16 11:35 | PC.NURSE ---
CALLING FOR [employer]
--- NOTE | 2024-11-16 12:02 | P.DN_ITS ---
Pronouncement Note Date and Time of Date of : 11/16/24 Time of : 10:56 PCOD Preliminary cause of : Cardiac arrest Summary Additional details: Patient had [id number] refractory V-fib cardiac arrest which ultimately resulted in refractory asystolic arrest underwent prolonged ACLS and resuscitation efforts were unsuccessful. Additional Data Confirmation of : no pulse Family: at bedside Additional persons at bedside: other Attending/PCP notified?: No Was code activated?: Yes Autopsy should be considered if:: Unknown or unanticipated medical complications Cause is not known with certainty on clinical grounds Would allay concerns of the public/family regarding Unexplained/unexpected apparently natural and not subject to a forensic medical jurisdiction DOA Within 24 hours of admission Sustained or apparently sustained injury while in the hospital Result of high risk, infectious and contagious disease Obstetric and pediatric arising from environmental or occupational hazard Unexplained/unexpected from dental, medical, or surgical diagnostic procedures and/or therapies Would disclose a known or suspected illness which also may have a bearing on survivors or recipients of transplanted organs Autopsy requested?: No Does not meet criteria title examiner notified?: Yes Organ bank notified?: Yes Advance directives: No
--- NOTE | 2024-11-16 13:48 | PC.NURSE ---
I spoke with Jessica at [facility]. I inquired the status of the case. She reports the [facility] navigator on the pts case has not reached out at this time but will reach out now. I was instructed not to d/c the pt with the home at this time.
--- NOTE | 2024-11-16 14:22 | PC.NURSE ---
pts daughter approached the nurses station asking why the pt couldn't be released to the home. The daughter states that the home security alarm installer approached her and stated that he could not be released without permission from [facility]. The daughter reports he is not an organ donor. I returned the call to [facility] and reached Jenna. She requested I transfer the call to the daughter. Jenna states the pt is a registered organ donor. I gave the pts daughter the phone. She is currently speaking to Jenna at this time.
--- NOTE | 2024-11-16 14:25 | PC.NURSE ---
COSMO WAGONER SPEAKING WITH MAURO REGARDING PT
--- NOTE | 2024-11-16 14:29 | PC.NURSE ---
I spoke with Corie the pts other daughter. She called Lorene and asked her to return the call to MAURO. Corie states her and Lorene are both POA. Corie states the paperwork is is in [id number].
[2024-11-16 14:34] VITALS: BMI 33.2
--- NOTE | 2024-11-16 14:36 | PC.NURSE ---
I spoke with Jenna at [facility]. She reports talking with Lorene-daughter who wants Mr. Blair to be released to the home. Jatin Riggs is the [employer] home office claim specialist that is present and previously spoke with the family pertaining to [facility].
[2024-11-16] MEDS: LIDOCAINE 2% 100 MG/5ML SYRINGE (CRASH CART) IV (14:38)
[2024-11-16] MEDS: EPINEPHrine 0.1 MG/ML 10ML SYRINGE (CRASH CART) 1 MG IV (14:38)
[2024-11-16] MEDS: MAGNESIUM SULFATE 1GM/2ML VIAL 2 GM IV (14:39)
--- NOTE | 2024-11-16 14:41 | PC.NURSE ---
I notified Corie-daughter that the pt has been released from [facility] to the home. I also notified Tonoam the worker.
== END 2024-11-16 15:15 | disposition expired ==
PROVIDERS: Emergency Provider Emergency Medicine; PCP Internal Medicine
DX: I46.9 Cardiac arrest, cause unspecified (principal)
CPT/HCPCS: 92950; 96374; 99291; J0171